=== PATIENT | female | born 1970 | race Caucasian/White ===

== ENCOUNTER → 2016-12-23 | Outpatient (CLI) | payer OTHER ==
[2015-04-13 12:26] VITALS: BP 144/80
[~2016-12-23] MED LIST: BIOT5000 PO; CYCL10TA2 PO; DOCU-27 PO; GABA600T2 PO; HYDR-2679 PO; HYDR-965 PO; HYDR-971 PO; MELO-156 PO
[2016-12-23 14:13] LABS: BASO # 0.1 x10^3/uL (0.0-0.2); BASO % 1 % (0-3); EOS % 2 % (0-3); HEMATOCRIT 32.5 % (36.0-47.0); LYMPH # 1.7 x10^3/uL (1.0-4.8); LYMPH % 25 % (24-48); MEAN CORPUSCULAR HEMOGLOBIN 25 pg (25-35); MEAN CORPUSCULAR HGB CONC 34 g/dL (31-37); MEAN CORPUSCULAR VOLUME 73 fL (79-100); MONO % 7 % (0-9); NEUT % 65 % (31-73); PLATELET COUNT 396 x10^3/uL (140-400); RED BLOOD COUNT 4.49 x10^6/uL (3.50-5.40); RED CELL DISTRIBUTION WIDTH 24.2 % (11.5-14.5); WHITE BLOOD COUNT 6.9 x10^3/uL (4.0-11.0)
[2016-12-23 14:32] LABS: ALBUMIN 3.2 g/dL (3.4-5.0); ALBUMIN/GLOBULIN RATIO 0.8 (1.0-1.7); CALCIUM 8.8 mg/dL (8.5-10.1); CREATININE 0.6 mg/dL (0.6-1.0); GFR 107.6; TOTAL BILIRUBIN 0.4 mg/dL (0.2-1.0); TOTAL PROTEIN 7.4 g/dL (6.4-8.2)
[2016-12-23 19:29] LABS: MICROCYTOSIS SLIGHT; PLT ESTIMATE ADEQUATE (ADEQUATE)
== END | disposition home or self-care (01) ==
LOC: SURGPAT 13:30
PROVIDERS: ATTEND Neurological Surgery
DX: M51.27 Other intervertebral disc displacement, lumbosacral region (principal)
CPT/HCPCS: 36415; 80053; 85007; 85027; 87641

== ENCOUNTER 2016-12-30 07:15 | Day surgery (SDC) | payer OTHER ==
[~2016-12-30] VITALS: Ht 160 cm; Wt 82.1 kg
[~2016-12-30 07:15] MED LIST changes: +CEFAZOLIN 2GM PREMIX 50 ML IV PRN; -HYDR-965 PO
[2016-12-30] MEDS ORDERED: THROMBIN 20,000 UNIT SPRAY.SYRN KIT TP ONE (07:27)
[2016-12-30] MEDS ORDERED: GELATIN SPONGE SIZE 100. ONE (07:28)
[2016-12-30] MEDS ORDERED: KETOROLAC 60 MG/2 ML SYRINGE FOR OR. ONE (07:28)
[2016-12-30] MEDS ORDERED: BUPIVAC MPF-EPI 0.5%-1:200000 30 ML VIAL. ONE (07:29)
[2016-12-30 07:31] LABS: NEG OBC UR NEG; POS OBC UR POS
[2016-12-30] MEDS ORDERED: IV RINGERS,LACTATED 1000ML 1,000 ML IV SCH (07:44)
[2016-12-30] MEDS ORDERED: MIDAZOLAM HCL 2 MG/2 ML VIAL. IV PRN (07:45)
[2016-12-30] MEDS ORDERED: FENTANYL PF 100 MCG/2 ML VIAL. IV PRN (07:45)
[2016-12-30] MEDS ORDERED: LIDOCAINE 1% 1 ML SYRINGE. ID PRN (07:45)
[2016-12-30] MEDS ORDERED: DESFLURANE > 120 MINUTES IH ONE (08:10)
[2016-12-30] MEDS ORDERED: ROCURONIUM 50 MG/5 ML VIAL. ONE (08:11)
[2016-12-30] MEDS ORDERED: REMIFENTANIL 2 MG VIAL. IV ONE (08:11)
[2016-12-30] MEDS ORDERED: DEXAMETHASONE SOD PHOS 20 MG/5 ML VIAL. ONE (08:11)
[2016-12-30] MEDS ORDERED: ONDANSETRON PF 4 MG/2 ML VIAL. ONE (08:11)
[2016-12-30] MEDS ORDERED: MIDAZOLAM HCL 2 MG/2 ML VIAL. ONE (08:11)
[2016-12-30] MEDS ORDERED: PROPOFOL 50 ML IV ONE ×2 (08:11→10:09)
[2016-12-30] MEDS ORDERED: LIDOCAINE 2% 100 MG/5 ML DISP.SYRIN. ONE (08:11)
[2016-12-30] MEDS ORDERED: FENTANYL PF 100 MCG/2 ML VIAL. ONE ×2 (08:11→09:50)
[2016-12-30] MEDS ORDERED: PROPOFOL 20 ML IV ONE (08:11)
[2016-12-30] MEDS ORDERED: 0.9 % SODIUM CHLORIDE 50 ML VIAL. IJ ONE (08:12)
[2016-12-30] MEDS: FENTANYL PF 100 MCG/2 ML VIAL. IV PRN ×2 (08:37→12:08)
[2016-12-30] MEDS ORDERED: PHENYLEPHRINE in 0.9% NACL PF 1 MG/10 ML DISP.SYRIN. IV ONE (09:16)
[2016-12-30] MEDS ORDERED: PHENYLEPHRINE 10 MG/ML VIAL. ONE (09:17)
[2016-12-30] MEDS ORDERED: GLYCOPYRROLATE 1 MG/5 ML VIAL. ONE (09:26)
[2016-12-30] MEDS: BACITRACIN 50,000 UNIT in IV NORMAL SALINE 1000ML BAG 1,000 ML IRR ONE ×2 (09:33→09:35)
--- NOTE | 2016-12-30 10:28 | PREOP HP ---
DATE OF SERVICE: 12/30/2016 HISTORY OF PRESENT ILLNESS: The patient is a pleasant 46-year-old woman, who in 2014 underwent lumbar microsurgery at L5-S1 on the left and did very well from that surgery. Beginning 1 month ago, she developed severe right buttock pain and posterior thigh pain. She said that there was no initiating event. On medication, she rates her pain at 4/10. Without medication, her pain is a 10/10. She says that lifting her right leg or bending exacerbates her pain significantly. Lying on her left side gives her some relief. She has been taking meloxicam and limiting her activities. She has been using ice an bed rest to help with the pain. There is no significant pain on the left side. PAST MEDICAL HISTORY: Arthritis, cold sores/fever blisters, headaches/migraines, anemia, blood clots, and tonsillitis. PAST SURGICAL HISTORY: Left knee surgery in 2013, a in 2003, in 1995, lumbar microdecompression at L5-S1 on the left in 2014, a breast reduction in 2015, and tummy tuck in 2015. FAMILY HISTORY: Diabetes, hypertension, Alzheimer's, and spine problems. SOCIAL HISTORY: She is with 2 children. Exercises daily by weight lifting. She is a former smoker, who quit somewhere between 1 and 5 years ago. She drinks alcohol one to two times per month. She is currently employed in IT. ALLERGIES: LATEX AND CELEBREX BOTH GIVE HER A RASH. CURRENT MEDICATIONS: Meloxicam. REVIEW OF SYSTEMS: A 12-point review of systems was obtained and is noncontributory, except for that mentioned above. PHYSICAL EXAMINATION: NEUROSURGERY EXAMINATION: GENERAL APPEARANCE: Alert, pleasant, in no acute distress. HEENT: Normocephalic and atraumatic. SKIN: Warm and dry. MUSCULOSKELETAL: Lumbar paraspinal muscle bulk is normal, restricted range of motion of lumbar spine, [id number] tenderness of lower lumbar spine with palpation, normal range of motion of the lower extremities bilaterally. EXTREMITIES: No clubbing, cyanosis, or edema. NEUROLOGIC: Alert and oriented x 3, normal recent and remote memory, strength 5/5 in bilateral lower extremities, and sensory was intact to light touch in the lower extremities bilaterally, except for decrease in the plantar surface of the right foot. Reflexes were present at the knees and absent at the ankles bilaterally. Straight leg raising on the right was positive with back and right leg pain relieved by Lasegue's maneuver, cross-leg. Straight leg raising was positive on the left, antalgic gait favoring her right leg. IMAGING: I reviewed her lumbar MRI scan. The principal abnormalities are at L5-S1. There is a left laminotomy present. The large left-sided disc extrusion is now well-decompressed on that side. Centrally and on the right side however, there is a large disc herniation with right S1 nerve root compression. ASSESSMENT/ PLAN: She has developed a herniated disc on the right side with nerve root compression and has severe right lumbar radiculopathy. I spoke with her about treatment options. Her pain is severe and is interfering with all of her activities. She is not improved with rest and ice treatment. She would strongly like to have a lumbar microsurgery to deal with the problem. I spoke about the surgery and the risks. She understands. She would like to go ahead with the surgery. We will make the arrangements. THEO SANCHEZ MD DR: KYLER/judith JOB#: [id number] / [id number] STEVO
[2016-12-30] MEDS ORDERED: CYCL10TA2 PO (11:49)
--- NOTE | 2016-12-30 11:51 | DISCH ---
DISCHARGE INSTRUCTIONS Condition on Discharge Condition on Discharge: Stable Activity After Discharge Activity Instructions for Disc: Activity as tolerated Bathing Instructions: Shower-keep dressing dry Lifting Instructions after Dis: No heavy lifting, No pulling or pushing, Do not lift >10 pounds Diet after Discharge Additional Diet Restrictions: resume home diet Wound Incision Care Wound/Incision Care: Ice to area for comfort Other wound/incision instructi: may remove dressing in 48 hrs if dry then nadir reina shower- no soaking Contacting the DRJj after DC Call your doctor for: Concerns you may have Follow-Up Follow up with: Dr. Sanchez's nurse 2 weeks [phone] THEO SANCHEZ MD Dec 30, 2016 11:51
[2016-12-30] MEDS ORDERED: HYDR-965 PO (12:09)
[2016-12-30] MEDS ORDERED: HYDROCODONE/APAP 7.5/325MG TABLET. PO ONE (12:15)
[2016-12-30 12:46] VITALS: BP 147/72
--- NOTE | 2017-01-01 08:32 | PATHOLOGY ---
PATHOLOGY REPORT * * * * * * * * FINAL DIAGNOSIS: Segments of fibrocartilaginous, fibroadipose and skeletal muscle tissue and bone, lumbar disc: - Degenerative changes of fibrocartilaginous tissue. COMMENT: There is no evidence of an acute inflammatory process or malignancy. (JPM:csd; d/t: 12/31/2016) REPORT ELECTRONICALLY SIGNED BY: Jake Marion M.D. DATE/TIME: 01/01/2017 08:31 * * * * * * * * GROSS PATHOLOGY: Received in formalin labeled "Lindsey Salamanca, lumbar disc" are multiple segments of ching, rubbery, and gritty tissue admixed with bone. The specimen measures 4.8 x 4.2 x 0.9 cm in aggregate dimensions. The tissue is submitted representatively in cassette A1, following decalcification. (CAA; 12/30/2016) INITIAL CPT CODE(S): A; 11179, 87118 Professional services performed [place] [place] [address] Technical services performed by [facility] at [address] [place] [address]. SPECIMEN(S) RECEIVED: A.Lumbar disc CLINICAL HISTORY: Lumbar herniated disc with radiculopathy PATIENT: LINDSEY SALAMANCA /AGE: 111/19/1970 (Age: 46) PATIENT #: [id number] ALT CASE #: SPECIMEN COLLECTION DATE: 12/30/2016 SPECIMEN RECEIVED DATE: 12/30/2016 [facility] - [address] [place] [address] - PHONE: [phone] * * * END OF REPORT * * *
--- NOTE | 2017-01-02 00:30 | OP ---
DATE OF SURGERY: 12/30/2016 PREOPERATIVE DIAGNOSIS: Herniated lumbar disc, L5-S1 right with severe right lumbar radiculopathy. POSTOPERATIVE DIAGNOSIS: Herniated lumbar disc, L5-S1 right with severe right lumbar radiculopathy. OPERATIONS PERFORMED: Hemilaminotomy and microdiscectomy re operation L5-S1, right. This level has had previous surgery. SURGEON: Kelby Sanchez M.D. OPERATIVE INDICATIONS: The patient is a very pleasant 46-year-old woman who in 2014 underwent lumbar microsurgery at L5-S1 and did very well from that. Beginning 6 weeks ago, she developed very severe pain in her right buttock, which radiated in right posterior thigh, virtually any activity increased her pain markedly. She rested in bed using ice, etc. to help her, but did have very little relief from her severe right leg pain. On imaging studies, there was a large right-sided disc herniation and a right central disc herniation. There was significant right S1 nerve root compression. I recommended lumbar microsurgery on the right. I discussed the surgery and the risks with her in detail and she wished to go ahead. DESCRIPTION OF PROCEDURE: Following general endotracheal anesthesia, the patient was positioned prone on the Acromed spine board. Her lumbar region was prepped and draped in standard fashion. REYNOLD hose and AV impulse boots were applied for DVT prophylaxis. A microscope was draped. Fluoroscopy was draped and brought into the field. Monitoring was established. Ancef 2 grams was given less than 1 hour prior to initiation of the surgery. Using fluoroscopic guidance, an incision was made directly over the L5-S1 interspace. I dissected down through the skin and subcutaneous tissue and placed a [place] micro disc retractor, brought in the high speed air drill and the microscope at this time using microscopic technique. I burred down a very generous hemilaminotomy. I exposed the dura and the exiting S1 root. I widely decompressed the region as far as bony decompression and removal of ligamentum flavum. I then gently retracted the root medially. There was a large subligamentous disc herniation, which was largely scarred into place and I began to work to remove this. I did enter the disc space and performed a discectomy in an attempt to help remove the large subligamentous disc, but it was recalcitrant and it was difficult to remove. I continued gently to work and then was able to free it up and remove a very large disc fragment, which I was able to pull from medial to lateral. I then worked further and removed several large subligamentous disc fragments farther medially and as I worked the entire region became very well decompressed. I then explored carefully. The area was very well decompressed throughout. I followed the nerve out and assured myself that there were no retained fragments. I did use a bipolar cautery as well as bone wax during the operation to obtain excellent hemostasis. At this point, I felt I had an excellent decompression. I irrigated copiously. I removed the retractor. I assured myself of excellent hemostasis and I closed the wound in layers with absorbable suture. The skin was closed with 4-0 subcuticular stitch. The operation went very well. The patient was taken to recovery with normal strength in her lower extremities and was quite pleased with the surgery. KELBY SANCHEZ MD DR: KYLER/judith JOB#: [id number] / [id number] STEVO
== END 2016-12-30 13:05 | disposition home or self-care (01) ==
LOC: SURG 07:15
PROVIDERS: ATTEND Neurological Surgery
DX: M51.16 Intervertebral disc disorders with radiculopathy, lumbar region (principal); Z87.891 Personal history of nicotine dependence; Z83.3 Family history of diabetes mellitus; M19.90 Unspecified osteoarthritis, unspecified site; D64.9 Anemia, unspecified
CPT/HCPCS: 63030; 76000; 81025; 88304; 88311; J0690; J1100; J1885; J2250; J2370; J2405; J2704; J3010; J3490; J7030; J7120